=== PATIENT | female | born 1970 | race Caucasian/White ===

== ENCOUNTER 2018-05-25 15:40 | Emergency (ER) | payer BC, OTHER ==
[~2018-05-25] VITALS: Ht 154.9 cm; Wt 81.6 kg
[~2018-05-25 15:40] MED LIST: ACHD5005 PO; OMEP20TA7 PO; omeprazole PO
--- OUTSIDE RECORDS SUMMARY | 2018-05-25 15:44 | XMS REPORT | Continuity of Care Document ---
Author Author Counts Include [facility] Address Unknown Phone Unavailable Allergies Active Description Code Type Severity Reaction Onset Reported/Identified Relationship to Patient Clinical Status Yes shellfish shellfish Unknown N/A 04/12/2016 Medications There is no data. Problems Date Dx Coded Attending Type Code Diagnosis Diagnosed By 07/16/2013 SHANNON TELLEZ DO 486 PNEUMONIA ORGANISM UNSPECIFIED 07/16/2013 SHANNON TELLEZ DO 786.30 HEMOPTYSIS UNSPECIFIED 03/31/2016 JANE SORTO LMSW Ot R10.11 RIGHT UPPER QUADRANT PAIN 03/31/2016 JANE SORTO LMSW Ot R10.11 RIGHT UPPER QUADRANT PAIN 04/12/2016 JANE SORTO LMSW Ot R10.11 RIGHT UPPER QUADRANT PAIN 04/12/2016 SANDRA CAMERON, SERGEY Snider Ot K25.9 GASTRIC ULCER, UNSP ACUTE OR CHRONIC, 04/12/2016 SERGEY FLORES MD Ot R10.13 EPIGASTRIC PAIN 04/13/2016 SERGEY FLORES MD Ot K25.9 GASTRIC ULCER, UNSP ACUTE OR CHRONIC, 04/13/2016 SERGEY FLORES MD Ot R10.13 EPIGASTRIC PAIN 04/16/2016 SERGEY FLORES MD Ot K82.8 OTHER SPECIFIED DISEASES OF GALLBLADDER 04/16/2016 SERGEY FLORES MD Ot Z01.818 ENCOUNTER FOR OTHER PREPROCEDURAL EXAMIN 04/18/2016 SERGEY FLORES MD Ot K25.9 GASTRIC ULCER, UNSP ACUTE OR CHRONIC, 04/18/2016 SERGEY FLORES MD Ot R10.13 EPIGASTRIC PAIN 04/19/2016 SERGEY FLORES MD Ot K82.8 OTHER SPECIFIED DISEASES OF GALLBLADDER 04/19/2016 SERGEY FLORES MD Ot Z01.818 ENCOUNTER FOR OTHER PREPROCEDURAL EXAMIN 04/19/2016 SERGEY FLORES MD Ot K81.1 CHRONIC CHOLECYSTITIS 04/19/2016 SERGEY FLORES MD Ot K82.1 HYDROPS OF GALLBLADDER 04/19/2016 SERGEY FLORES MD Ot Z11.2 ENCOUNTER FOR SCREENING FOR OTHER BACTER 04/19/2016 SERGEY FLORES MD Ot K82.8 OTHER SPECIFIED DISEASES OF GALLBLADDER 04/19/2016 SERGEY FLORES MD Ot R53.83 OTHER FATIGUE 04/20/2016 SERGEY FLORES MD Ot K81.1 CHRONIC CHOLECYSTITIS 04/20/2016 SERGEY FLORES MD Ot K82.1 HYDROPS OF GALLBLADDER 04/20/2016 SERGEY FLORES MD Ot Z11.2 ENCOUNTER FOR SCREENING FOR OTHER BACTER 04/22/2016 SEREGY FLORES MD Ot K82.8 OTHER SPECIFIED DISEASES OF GALLBLADDER 04/22/2016 SERGEY FLORES MD Ot Z01.818 ENCOUNTER FOR OTHER PREPROCEDURAL EXAMIN 04/25/2016 SERGEY FLORES MD Ot K81.1 CHRONIC CHOLECYSTITIS 04/25/2016 SERGEY FLORES MD Ot K82.1 HYDROPS OF GALLBLADDER 04/25/2016 SERGEY FLORES MD Ot Z11.2 ENCOUNTER FOR SCREENING FOR OTHER BACTER 04/29/2016 SERGEY FLORES MD Ot K82.8 OTHER SPECIFIED DISEASES OF GALLBLADDER 04/29/2016 SERGEY FLORES MD Ot R53.83 OTHER FATIGUE 05/25/2018 JANE SORTO LMSW Ot R10.11 RIGHT UPPER QUADRANT PAIN 05/25/2018 SERGEY FLORES MD Ot R10.13 EPIGASTRIC PAIN 05/25/2018 SERGEY FLORES MD Ot Z01.818 ENCOUNTER FOR OTHER PREPROCEDURAL EXAMIN 05/25/2018 SERGEY FLORES MD Ot K82.8 OTHER SPECIFIED DISEASES OF GALLBLADDER 05/25/2018 SERGEY FLORES MD Ot R53.83 OTHER FATIGUE Procedures Code Description [place] [address] XRAY CHEST 2 VIEW 07/16/2013 Results Test Result Range Automated blood complete blood count (hemogram) panel - 04/16/16 14:40 Blood leukocytes automated count (number/volume) 6.7 10*3/uL 4.3-11.0 Blood erythrocytes automated count (number/volume) 4.97 10*6/uL 4.35-5.85 Venous blood hemoglobin measurement (mass/volume) 14.2 g/dL 11.5-16.0 Blood hematocrit (volume fraction) 44 % 35-52 Automated erythrocyte mean corpuscular volume 88 [foz_us] 80-99 Automated erythrocyte mean corpuscular hemoglobin (mass per erythrocyte) 29 pg 25-34 Automated erythrocyte mean corpuscular hemoglobin concentration measurement ( mass/volume) 33 g/dL 32-36 Automated erythrocyte distribution width ratio 13.8 % 10.0-14.5 Automated blood platelet count (count/volume) 257 10*3/uL 130-400 Automated blood platelet mean volume measurement 9.1 [foz_us] 7.4-10.4 Comprehensive metabolic panel - 04/16/16 14:40 Serum or plasma sodium measurement (moles/volume) 140 mmol/L 135-145 Serum or plasma potassium measurement (moles/volume) 4.0 mmol/L 3.6-5.0 Serum or plasma chloride measurement (moles/volume) 108 mmol/L 98-107 Carbon dioxide 22 mmol/L 21-32 Serum or plasma anion gap determination (moles/volume) 10 mmol/L 5-14 Serum or plasma urea nitrogen measurement (mass/volume) 17 mg/dL 7-18 Serum or plasma creatinine measurement (mass/volume) 0.68 mg/dL 0.60-1.30 Serum or plasma urea nitrogen/creatinine mass ratio 25 NRG Serum or plasma creatinine measurement with calculation of estimated glomerular filtration rate > NRG Serum or plasma glucose measurement (mass/volume) 76 mg/dL 70-105 Serum or plasma calcium measurement (mass/volume) 9.5 mg/dL 8.5-10.1 Serum or plasma total bilirubin measurement (mass/volume) 0.4 mg/dL 0.1-1.0 Serum or plasma alkaline phosphatase measurement (enzymatic activity/volume) 55 U/L 40-136 Serum or plasma aspartate aminotransferase measurement (enzymatic activity/ volume) 11 U/L 5-34 Serum or plasma alanine aminotransferase measurement (enzymatic activity/volume ) 9 U/L 0-55 Serum or plasma protein measurement (mass/volume) 6.9 g/dL 6.4-8.2 Serum or plasma albumin measurement (mass/volume) 4.1 g/dL 3.2-4.5 Methicillin resistant Staphylococcus aureus (MRSA) screening culture - 06:32 Methicillin resistant Staphylococcus aureus (MRSA) screening culture NEG NRG Encounters ACCT No. Visit Date/Time Discharge Status Pt. Type Provider Facility Loc./Unit Complaint [id number] 07/16/2013 11:54:00 07/16/2013 23:59:59 CLS Outpatient SHANNON TELLEZ DO [id number] 04/19/2016 06:07:00 04/19/2016 12:00:00 DIS Outpatient SERGEY FLORES MD [facility] SDC DYSKNESIA [id number] 04/16/2016 08:15:00 04/16/2016 23:59:59 CLS Outpatient SERGEY FLORES MD [facility] CARD RUQ PAIN,NEG SONO, ABD PAIN,FATIGUE [id number] 04/16/2016 12:31:00 04/16/2016 13:31:00 DIS Outpatient SERGEY FLORES MD [facility] PREOP DYSKNESIA [id number] 04/12/2016 10:52:00 04/12/2016 12:43:00 DIS Outpatient SERGEY FLORES MD [facility] SDC UPPER GASTRIC PAIN [id number] 04/08/2016 05:51:00 04/08/2016 23:59:59 CLS Outpatient SERGEY FLORES MD [facility] PREOP UPPER GASTRIC PAIN [id number] 03/30/2016 09:06:00 03/30/2016 23:59:59 CLS Outpatient JANE SORTO APRN [facility] RAD BILIARY COLIC,RUQ PAIN, NAUSEA [id number] 05/25/2018 15:41:00 ACT Emergency ALMA DELIA PLATA MD [facility] ER HEART FLUTTERING
--- OUTSIDE RECORDS SUMMARY | 2018-05-25 15:44 | XMS REPORT ---
Author RINA Chu Organization [employer] Address Unknown Phone Unavailable Care Team Providers Care Food Checker Name Role Phone RINA CLINE CP Unavailable Allergies, Adverse Reactions, Alerts Substance Reaction Event Type N.K.D.A. Info Not Available Non Drug Allergy Problems Problem Type Condition Code Onset Dates Condition Status Problem Hemoptysis, unspecified 786.30 Active Assessment Pneumonia J18.9 Active Problem Pneumonia, organism unspecified 486 Active Assessment Pharyngitis J02.9 Active Medications Medication Code System Code Instructions Start Date End Date Status Dosage Mucinex DM [facility] [address]-04 not defined Ibuprofen ND 0 200mg TID 3-4 tab Phenylephrine HCl [facility] [address]-32 not defined Claritin [facility] [address]-48 not defined Azithromycin [facility] [address]-69 250 MG Orally Once a day Mar 29, 2015 Apr 03, 2015 2 tablets on the first day, then 1 tablet daily for 4 days Procedures Procedure Coding System Code Date Office Visit, Est Pt., Level 3 CPT-4 89048 Mar 29, 2015 STREP A ASSAY W/OPTIC CPT-4 10736 Mar 29, 2015 Vital Signs Date/Time: Mar 29, 2015 Temperature 98.3 F Weight 198.2 lbs Height 61 in BMI 37.45 Index Blood Pressure Diastolic 84 mmHg Blood Pressure Systolic 120 mmHg Cardiac Monitoring Heart Rate 98 bpm Results Name Result Date Reference Range Unit Abnormality Flag STREP A (IN HOUSE) Summary Purpose [employer] Submission
[2018-05-25] MEDS ORDERED: NS IV 1000 ML 1,000 ML ONE (16:00)
--- NOTE | 2018-05-25 16:00 | ED Cardiac General ---
History of Present Illness General Stated Complaint: HEART FLUTTERING Source: patient Exam Limitations: no limitations History of Present Illness Date Seen by Provider: May 25, 2018 Time Seen by Provider: 15:58 Initial Comments 47-year-old female who was sent over from [facility] urgent care with complaints of feeling like her heart is fluttering and EKG changes. She reports that she's had these symptoms for the past [address] Beatty has been treating her for indigestion and heartburn. She had an appointment today and they did an EKG found that she was having PVCs. She denies chest pain, shortness of breath, lightheadedness, dizziness, nausea or vomiting. Timing/Duration: other (2 months) Modifying Factors: improves with palpation Associated Systoms: No Chest Pain, No Shortness of Air, No Syncope, No Weakness Allergies and Home Medications Allergies Coded Allergies: nitrofurantoin (Verified Allergy, Unknown, 05/25/18) Uncoded Allergies: CLINDAMYACIN (Allergy, Unknown, 05/25/18) shellfish (Allergy, Unknown, 04/12/16) Home Medications Hydrocodone Bit/Acetaminophen 1 Each Tablet, 1-2 TAB PO 4-6HR PRN for PAIN Prescribed by: SERGEY FLORES on 04/19/16 0854 Omeprazole 20 Mg Tablet., 20 MG PO DAILY, (Reported) Patient Home Medication List Home Medication List Reviewed: Yes Review of Systems Review of Systems Constitutional: no symptoms reported, see HPI; No dizziness Cardiovascular: See HPI, Palpitations All Other Systems Reviewed Negative Unless Noted: Yes Past Dqqjtgo-Nxzbad-Yajxyt Hx Past Med/Social Hx: Reviewed Nursing Past Med/Soc Hx Patient Social History Recent Foreign Travel: No Contact w/Someone Who Travel: No Recent Hopitalizations: No Seasonal Allergies Seasonal Allergies: No Past Medical History Section, Hysterectomy Reproductive Disorders: No Sexually Transmitted Disease: No HIV/AIDS: No Gastroesophageal Reflux, Gall Bladder Disease Family Medical History Reviewed Nursing Family Hx Physical Exam Vital Signs Vital Signs - First Documented Capillary Refill : Height, Weight, BMI Height: 5'1.00" Weight: 155lbs. 0.0oz. 70.384706ke; 29.3 BMI Method: General Appearance: No Apparent Distress, WD/WN Respiratory: Chest Non Tender, Lungs Clear, Normal Breath Sounds, No Accessory Muscle Use, No Respiratory Distress Cardiovascular: Regular Rate, Rhythm (PVCs), No Edema, No Gallop, No JVD, No Murmur, Normal Peripheral Pulses Neurologic/Psychiatric: Alert, Oriented x3, Normal Mood/Affect Skin: Normal Color, Warm/Dry Progress/Results/Core Measures Results/Orders Lab Results Laboratory Tests Test 05/25/18 16:10 Range/Units White Blood Count 11.7 H 4.3-11.0 10^3/uL Red Blood Count 4.92 4.35-5.85 10^6/uL Hemoglobin 14.1 11.5-16.0 G/DL Hematocrit 44 35-52 % Mean Corpuscular Volume 89 80-99 FL Mean Corpuscular Hemoglobin 29 25-34 PG Mean Corpuscular Hemoglobin Concent 32 32-36 G/DL Red Cell Distribution Width 14.2 10.0-14.5 % Platelet Count 273 130-400 10^3/uL Mean Platelet Volume 9.0 7.4-10.4 FL Neutrophils (%) (Auto) 74 42-75 % Lymphocytes (%) (Auto) 20 12-44 % Monocytes (%) (Auto) 6 0-12 % Eosinophils (%) (Auto) 1 0-10 % Basophils (%) (Auto) 0 0-10 % Neutrophils # (Auto) 8.6 H 1.8-7.8 X 10^3 Lymphocytes # (Auto) 2.3 1.0-4.0 X 10^3 Monocytes # (Auto) 0.7 0.0-1.0 X 10^3 Eosinophils # (Auto) 0.1 0.0-0.3 10^3/uL Basophils # (Auto) 0.0 0.0-0.1 10^3/uL Prothrombin Time 12.7 12.2-14.7 SEC INR Comment 1.0 0.8-1.4 Activated Partial Thromboplast Time 38 H 24-35 SEC Sodium Level 139 135-145 MMOL/L Potassium Level 3.9 3.6-5.0 MMOL/L Chloride Level 106 98-107 MMOL/L Carbon Dioxide Level 24 21-32 MMOL/L Anion Gap 9 5-14 MMOL/L Blood Urea Nitrogen 11 7-18 MG/DL Creatinine 0.76 0.60-1.30 MG/DL Estimat Glomerular Filtration Rate > 60 BUN/Creatinine Ratio 14 Glucose Level 80 70-105 MG/DL Calcium Level 9.7 8.5-10.1 MG/DL Corrected Calcium 9.5 8.5-10.1 MG/DL Magnesium Level 2.3 1.8-2.4 MG/DL Total Bilirubin 0.6 0.1-1.0 MG/DL Aspartate Amino Transf (AST/SGOT) 17 5-34 U/L Alanine Aminotransferase (ALT/SGPT) 14 0-55 U/L Alkaline Phosphatase 68 40-136 U/L Myoglobin 28.9 10.0-92.0 NG/ML Troponin I < 0.028 <0.028 NG/ML Total Protein 7.5 6.4-8.2 GM/DL Albumin 4.2 3.2-4.5 GM/DL My Orders Orders - RICKIE SANTANA Cbc With Automated Diff (05/25/18 15:57) Magnesium (05/25/18 15:57) Chest 1 View, Ap/Pa Only (05/25/18 15:57) Cardiac Profile 1 (05/25/18 15:57) Comprehensive Metabolic Panel (05/25/18 15:57) Myoglobin Serum (05/25/18 15:57) Protime With Inr (05/25/18 15:57) Partial Thromboplastin Time (05/25/18 15:57) O2 (05/25/18 15:57) Monitor-Rhythm Ecg Trace Only (05/25/18 15:57) Saline Lock/Iv-Start (05/25/18 15:57) Ns Iv 1000 Ml (Sodium Chloride 0.9%) (05/25/18 16:00) Medications Given in ED Vital Signs/I&O 05/25/18 05/25/18 05/25/18 15:50 15:50 17:27 Temp 98.1 Pulse 58 71 Resp 18 16 B/P (MAP) 142/77 (98) 144/78 (100) Pulse Ox 99 96 100 O2 Delivery Nasal Cannula Nasal Cannula O2 Flow Rate 2.00 2.00 Progress Progress Note : Time: 17:08 Progress Note I have seen and evaluated the patient. I've informed her of her laboratory findings and chest x-ray. After the liter of fluid she is not having nearly as many PVCs as she was on arrival to the emergency room. Instructed her to follow- up with and she is agreement with plan of care. Return precautions were given. EKG : EKG Time: 15:56 Rate: 53 Rhythm: PVC (tracheomegaly) Intervals: Normal ECG Comparisson: No Previous ECG Available Comment Reviewed by Dr. Rebolledo, he agrees with above Departure Impression Primary Impression: Palpitations Additional Impression: PVCs (premature ventricular contractions) Disposition: 01 HOME, SELF-CARE Condition: Stable/Unchanged Departure-Patient Inst. Decision time for Depature: 17:09 Referrals: IZABELLA TUCKER DO (PCP) Primary Care Physician Tylor CHILDERS MD Patient Instructions: Palpitations (DC) Add. Discharge Instructions: Resume your home medications as previously prescribed. Follow-up with her primary care provider within 1 week for recheck. Follow-up with Dr. Childers for recheck, call first thing tomorrow morning for an appointment time. Return back to the emergency room for any worsening symptoms or concerns as needed. RICKIE SANTANA May 25, 2018 16:00
[2018-05-25 16:18] LABS: BASOPHILS % (AUTO) 0 % (0-10); EOSINOPHILS # (AUTO) 0.1 10^3/uL (0.0-0.3); EOSINOPHILS % (AUTO) 1 % (0-10); HEMATOCRIT 44 % (35-52); HEMOGLOBIN 14.1 G/DL (11.5-16.0); LYMPHOCYTES # (AUTO) 2.3 X 10^3 (1.0-4.0); LYMPHOCYTES % (AUTO) 20 % (12-44); MEAN CORPUSCULAR HEMOGLOBIN 29 PG (25-34); MEAN CORPUSCULAR HGB CONC 32 G/DL (32-36); MEAN CORPUSCULAR VOLUME 89 FL (80-99); MONOCYTES # (AUTO) 0.7 X 10^3 (0.0-1.0); MONOCYTES % (AUTO) 6 % (0-12); NEUTROPHILS # (AUTO) 8.6 X 10^3 (1.8-7.8); NEUTROPHILS % (AUTO) 74 % (42-75); PLATELET COUNT 273 10^3/uL (130-400); RED BLOOD COUNT 4.92 10^6/uL (4.35-5.85); RED CELL DISTRIBUTION WIDTH 14.2 % (10.0-14.5); WHITE BLOOD COUNT 11.7 10^3/uL (4.3-11.0)
[2018-05-25 16:35] LABS: PROTHROMBIN TIME PATIENT 12.7 SEC (12.2-14.7)
--- NOTE | 2018-05-25 16:42 | Diagnostic Imaging Report ---
INDICATION: Cardiac dysrhythmia. Portable upright PA view of the chest is obtained. COMPARISON: No previous study is available for comparison at this time. FINDINGS: Heart size and pulmonary vasculature are within normal limits, and the lungs are clear, bilaterally. IMPRESSION: Unremarkable chest. Dictated by: Dictated on workstation # [id number]
[2018-05-25 16:43] LABS: ALANINE AMINOTRANSFERASE 14 U/L (0-55); ALBUMIN 4.2 GM/DL (3.2-4.5); ALKALINE PHOSPHATASE 68 U/L (40-136); BILIRUBIN,TOTAL 0.6 MG/DL (0.1-1.0); BUN/CREATININE RATIO 14; CALCIUM 9.7 MG/DL (8.5-10.1); CARBON DIOXIDE 24 MMOL/L (21-32); CHLORIDE 106 MMOL/L (98-107); CREATININE SERUM 0.76 MG/DL (0.60-1.30); GFR ESTIMATED > 60; GLUCOSE 80 MG/DL (70-105); MAGNESIUM 2.3 MG/DL (1.8-2.4); POTASSIUM 3.9 MMOL/L (3.6-5.0); SODIUM 139 MMOL/L (135-145); TOTAL PROTEIN 7.5 GM/DL (6.4-8.2)
[2018-05-25 16:50] LABS: MYOGLOBIN SERUM 28.9 NG/ML (10.0-92.0)
[2018-05-25 17:27] VITALS: BP 144/78
== END 2018-05-25 17:26 | disposition home or self-care (01) ==
LOC: EDUNIT# 15:40 → ER 15:41
DX: I49.3 Ventricular premature depolarization (principal); K21.9 Gastro-esophageal reflux disease without esophagitis; Z88.0 Allergy status to penicillin; Z88.8 Allergy status to other drugs, medicaments and biological substances; Z98.890 Other specified postprocedural states; Z90.710 Acquired absence of both cervix and uterus; Z87.19 Personal history of other diseases of the digestive system
CPT/HCPCS: 36415; 71045; 80053; 83735; 83874; 84484; 85025; 85610; 85730; 93005; 93041

== ENCOUNTER 2018-06-28 13:30 | Outpatient (RCR) | payer BC | END 2018-09-26 | disposition home or self-care (01) | LOC: CARD 13:30 | PROVIDERS: ATTEND Internal Medicine Interventional Cardiology | DX: R42 Dizziness and giddiness (principal); I49.3 Ventricular premature depolarization; R00.2 Palpitations; E66.9 Obesity, unspecified; Z68.29 Body mass index [BMI] 29.0-29.9, adult | CPT/HCPCS: 93270 ==

== ENCOUNTER → 2018-09-13 | Outpatient (CLI) | payer BC | LOC: CARD 11:19 | PROVIDERS: ATTEND Internal Medicine Interventional Cardiology | DX: R42 Dizziness and giddiness (principal); I49.3 Ventricular premature depolarization; R00.2 Palpitations; I49.1 Atrial premature depolarization | CPT/HCPCS: 93225; 93226 ==

== ENCOUNTER → 2019-02-02 | Outpatient (CLI) | payer BC ==
--- NOTE | 2019-02-02 18:30 | Diagnostic Imaging Report ---
INDICATION: Routine screening. COMPARISON: No prior mammograms are available for comparison. This is a baseline study. EXAMINATION: 2D and 3D bilateral screening mammography was performed with CAD. 3D tomographic images were obtained and reviewed. The current study was also evaluated with a Computer Aided Detection (CAD) system. FINDINGS: Scattered fibroglandular densities are identified, bilaterally. There are benign calcifications, bilaterally. A tiny circumscribed nodule in the upper-outer left breast is noted which has benign features. No spiculated mass or malignant appearing microcalcifications are seen. The axillae are unremarkable. IMPRESSION: No mammographic features suspicious for malignancy are identified. ACR BI-RADS Category 1: Negative. Result letter will be mailed to the patient. Note: At least 10% of breast cancer is not imaged by mammography. Dictated on workstation # [id number]
== END ==
LOC: RAD 14:59
PROVIDERS: ATTEND Nurse Practitioner Family
DX: Z12.31 Encounter for screening mammogram for malignant neoplasm of breast (principal)
CPT/HCPCS: 77067

== ENCOUNTER → 2020-09-18 | Outpatient (CLI) | payer BC ==
--- NOTE | 2020-09-19 17:28 | Diagnostic Imaging Report ---
INDICATION: Routine screening. Comparison is made with prior mammogram 02/02/2019. 2-D and 3-D bilateral screening mammography was performed with CAD. Scattered fibroglandular densities are identified bilaterally. Benign nodular outer left breast is stable. No spiculated mass or malignant appearing microcalcifications are seen. Axillae are unremarkable. IMPRESSION: BI-RADS Category 2 No mammographic features suspicious for malignancy are identified. ACR BI-RADS Category 2: Benign findings. Result letter will be mailed to the patient. Note: At least 10% of breast cancer is not imaged by mammography. Dictated by: Dictated on workstation # [id number]
== END ==
LOC: RAD 15:45
PROVIDERS: ATTEND Nurse Practitioner Family
DX: Z12.31 Encounter for screening mammogram for malignant neoplasm of breast (principal); Z00.01 Encounter for general adult medical examination with abnormal findings; Z12.11 Encounter for screening for malignant neoplasm of colon; B35.3 Tinea pedis; B35.4 Tinea corporis; E66.8 Other obesity; M75.52 Bursitis of left shoulder; R00.2 Palpitations; Z79.899 Other long term (current) drug therapy
CPT/HCPCS: 77063; 77067

== ENCOUNTER 2020-10-30 07:45 | Outpatient (RCR) | payer BC ==
[~2020-10-30] VITALS: Ht 154.9 cm; Wt 89.9 kg
[~2020-10-30 07:45] MED LIST changes: +BUPR100T8 PO; +CLOT15CR6 TP; +LORA10CA PO; +METO50TA7 PO; +PSEU-137 PO; +TERB250T16 PO
== END 2020-10-30 08:10 | disposition home or self-care (01) ==
LOC: PREOP 07:45
PROVIDERS: ATTEND Surgery
DX: Z01.812 Encounter for preprocedural laboratory examination (principal); Z12.11 Encounter for screening for malignant neoplasm of colon; K21.9 Gastro-esophageal reflux disease without esophagitis; Z20.822 Contact with and (suspected) exposure to COVID-19
CPT/HCPCS: 87635

== ENCOUNTER 2020-11-04 08:52 | Day surgery (SDC) | payer BC ==
[~2020-11-04] VITALS: Ht 154.9 cm; Wt 89.9 kg
[2020-11-04] MEDS ORDERED: LACTATED RINGERS 1,000 ML IV ONE (09:01)
[2020-11-04] MEDS ORDERED: LACTATED RINGERS 1,000 ML IV STA (09:04)
[2020-11-04 09:10] VITALS: BP 133/87
[2020-11-04] MEDS ORDERED: HURRICAINE EXT TUBE (BENZOCAINE) XX PRN (09:15)
[2020-11-04] MEDS ORDERED: MTP25TSR PO (09:22)
[2020-11-04] MEDS ORDERED: MIDAZOLAM 2 MG/2 ML (VERSED) VIAL ONE (10:52)
[2020-11-04] MEDS ORDERED: proPOfol 200 MG/20 ML (DIPRIVAN) VIAL IV ONE ×2 (10:52→11:16)
--- NOTE | 2020-11-04 11:27 | Progress Note-Post Operative ---
Post-Operative Progess Note Surgeon (s)/Payment Processor (s) Surgeon KIRK MA DO Payment Processor: na Pre-Operative Diagnosis gerd, screening colonoscopy Post-Operative Diagnosis small hiatal hernia, early schotski's ring, normal colon Procedure & Operative Findings Date of Procedure 11/04/20 Procedure Performed/Findings egd c biopsies, colonoscopy Anesthesia Type per [facility] Estimated Blood Loss Estimated blood loss (mL): none Specimens/Packing Specimens Removed antrum, ge KIRK MA DO Nov 04, 2020 11:27
--- NOTE | 2020-11-04 11:28 | Discharge Inst-Simple/Standard ---
Discharge Inst-Standard Patient Instructions/Follow Up Plan of Care/Instructions/FU: 2-3 Weeks Evelin Activity as Tolerated: Yes Discharge Diet: Regular Diet KIRK MA DO Nov 04, 2020 11:28
[2020-11-04 11:30] VITALS: BP 142/60
[2020-11-04 11:35] VITALS: BP 116/69
[2020-11-04 11:55] VITALS: BP 133/64
--- NOTE | 2020-11-04 12:36 | Anesthesia-General Post-Op ---
MAC Patient Condition Mental Status/LOC: Same as Preop Cardiovascular: Satisfactory Nausea/Vomiting: Absent Respiratory: Satisfactory Pain: Controlled Complications: Absent Post Op Complications Complications None Follow Up Care/Instructions Patient Instructions None needed. Anesthesiology Discharge Order Discharge Order Patient was seen after the procedure and she was doing well, no complaints, stable vital signs, no apparent adverse anesthesia problems. TAMIKO MILLER DO Nov 04, 2020 12:36
--- NOTE | 2020-11-04 16:22 | OPERATIVE REPORT ---
DATE OF SERVICE: 11/04/2020 PREOPERATIVE DIAGNOSES: Screening colonoscopy, gastroesophageal reflux disease. POSTOPERATIVE DIAGNOSES: Small hiatal hernia, early Schatzki's ring, normal colon. PROCEDURE: EGD with biopsies, colonoscopy. SURGEON: Kirk Waters DO ANESTHESIA: Per MDA. ESTIMATED BLOOD LOSS: None. COMPLICATIONS: None. INDICATIONS: The patient is a 50-year-old female needing screening colonoscopy and also has GERD symptoms. She understands risks and benefits of procedure and wished to proceed with procedure. Consent was signed in the chart. DESCRIPTION OF PROCEDURE: The patient was taken to the endoscopy suite, placed in left lateral recumbent position. Timeout was performed. Scope was inserted in mouth, down the esophagus, stomach and into the duodenum without difficulty. There were no polyps, masses or ulcerations within the duodenum. Scope was then slowly retracted back to stomach where it was further insufflated. Biopsy of the antrum was obtained. No polyps, masses or ulcerations. Scope was retroflexed noting a small hiatal hernia, no other pathology. Scope was returned to its normal position, slowly withdrawn to distal esophagus. Early Schatzki's ring present. Two biopsies of this area were made at the GE junction at early Schatzki's ring. The scope was then slowly retracted back noting no other pathology. The patient tolerated procedure well. Digital rectal exam was performed noting internal hemorrhoids. No palpable polyps, masses or ulcerations. Scope was inserted in the rectum, advanced all the way to cecum with minimal difficulty. Prep was adequate. Scope was slowly retracted back. There were no polyps, masses or ulcerations in the cecum, ascending, transverse, descending and sigmoid colon. Once in the rectum, scope was retroflexed noting no other pathology. Scope was returned to its normal position, slowly withdrawn until completely removed. The patient tolerated procedure well without any complications. She was taken to recovery room in stable condition. RECOMMENDATIONS: The patient will need repeat colonoscopy in 10 years unless family history of colon cancer, which would then be 5 years. Any issues before that be seen at that time. The patient will follow up on biopsies for EGD. We will continue with current regimen. Job ID: [id number] DocumentID: [id number] Dictated Date: 11/04/2020 11:31:48 Disaster Recovery Analyst Date: 11/04/2020 16:21:44 Dictated By: KIRK WATERS DO [place]
== END 2020-11-04 12:33 | disposition home or self-care (01) ==
LOC: ENDO 08:52
PROVIDERS: ATTEND Surgery
DX: Z12.11 Encounter for screening for malignant neoplasm of colon (principal); K21.00 Gastro-esophageal reflux disease with esophagitis, without bleeding; K29.50 Unspecified chronic gastritis without bleeding; K44.9 Diaphragmatic hernia without obstruction or gangrene; K22.2 Esophageal obstruction; K64.8 Other hemorrhoids; E66.9 Obesity, unspecified; I49.3 Ventricular premature depolarization; F41.9 Anxiety disorder, unspecified; Z90.710 Acquired absence of both cervix and uterus; Z90.49 Acquired absence of other specified parts of digestive tract; Z79.899 Other long term (current) drug therapy; Z68.37 Body mass index [BMI] 37.0-37.9, adult; Z82.49 Family history of ischemic heart disease and other diseases of the circulatory system
CPT/HCPCS: 88305

== ENCOUNTER → 2021-05-07 | Outpatient (CLI) | payer BC ==
[~2021-05-07] VITALS: Ht 154.9 cm; Wt 88.9 kg
[~2021-05-07] MED LIST changes: +ACETAMINOPHEN 500 MG TAB (TYLENOL) PO PRN; +BAMLANIVIMAB 700 MG/ETESEVIMAB 1,400 MG IN NS IV ONE; +EPINEPHrine INJECTION 1 MG/ML AMP IM PRN; +MTP25TSR PO; +ONDANSETRON 4 MG/2 ML (SDV) Z0FRAN IV PRN; -PSEU-137 PO; +PSEU-182 PO; -TERB250T16 PO; +TERB250T88 PO; +diphenhydrAMINE 50 MG/ML INJ (BENADRYL) IV PRN
[2021-05-07 10:04] VITALS: BP 144/66
[2021-05-07 11:03] VITALS: BP 133/68
== END ==
LOC: INFUSION 09:47
PROVIDERS: ATTEND Nurse Practitioner Family
DX: U07.1 COVID-19 (principal)

== ENCOUNTER → 2021-06-23 | Outpatient (CLI) | payer BC ==
[~2021-06-23] MED LIST changes: -ACETAMINOPHEN 500 MG TAB (TYLENOL) PO PRN; -BAMLANIVIMAB 700 MG/ETESEVIMAB 1,400 MG IN NS IV ONE; -EPINEPHrine INJECTION 1 MG/ML AMP IM PRN; -ONDANSETRON 4 MG/2 ML (SDV) Z0FRAN IV PRN; -diphenhydrAMINE 50 MG/ML INJ (BENADRYL) IV PRN
[2021-06-23 14:14] LABS: HEMATOCRIT 42 % (35-52); HEMOGLOBIN 13.4 g/dL (11.5-16.0); MEAN CORPUSCULAR HEMOGLOBIN 29 pg (25-34); MEAN CORPUSCULAR HGB CONC 32 g/dL (32-36); MEAN CORPUSCULAR VOLUME 89 fL (80-99); MEAN PLATELET VOLUME 8.8 fL (9.0-12.2); PLATELET COUNT 280 10^3/uL (130-400); WHITE BLOOD COUNT 6.7 10^3/uL (4.3-11.0)
[2021-06-23 14:37] LABS: ALANINE AMINOTRANSFERASE 24 U/L (0-55); ALBUMIN 4.2 GM/DL (3.2-4.5); ALKALINE PHOSPHATASE 76 U/L (40-136); BILIRUBIN,TOTAL 0.3 MG/DL (0.1-1.0); BUN/CREATININE RATIO 18; CALCIUM 10.1 MG/DL (8.5-10.1); CARBON DIOXIDE 22 MMOL/L (21-32); CHLORIDE 106 MMOL/L (98-107); CREATININE SERUM 0.77 MG/DL (0.60-1.30); GFR ESTIMATED 94; GLUCOSE 90 MG/DL (70-105); POTASSIUM 4.5 MMOL/L (3.6-5.0); SODIUM 140 MMOL/L (135-145); TOTAL PROTEIN 7.6 GM/DL (6.4-8.2)
== END ==
LOC: LAB 13:55
PROVIDERS: ATTEND Nurse Practitioner Family
DX: R07.9 Chest pain, unspecified (principal); R00.2 Palpitations
CPT/HCPCS: 36415; 80053; 82553; 83874; 84484; 85027; 85379

== ENCOUNTER → 2021-08-11 | Outpatient (CLI) | payer BC ==
[~2021-08-11] MED LIST changes: +CATHETER FLUSH 10 ML SYR IVP PRN; +REGADENOSON 0.4 MG/5 ML SYR (LEXISCAN) IV ONE
[2021-08-11 09:12] VITALS: BP 134/64
--- NOTE | 2021-08-13 09:51 | STRESS TEST ---
DATE OF SERVICE: 08/11/2021 RESTING AND POST REGADENOSON TECHNETIUM-99M TETROFOSMIN SPECT CT IMAGING ORDERING PHYSICIAN: Dr. Bishop. PRIMARY PHYSICIAN: . CLINICAL DIAGNOSIS: Coronary artery disease. Baseline images were carried out after injection of 10.29 mCi of technetium-99m Tetrofosmin. This was followed by 0.4 mg regadenoson and 31 mCi of technetium-99m Tetrofosmin for stress imaging. The electrocardiogram showed sinus rhythm at baseline and it did not change significantly with the regadenoson infusion. The patient tolerated the procedure well. Review of images at rest and following stress does not indicate any distinct perfusion defects consistent with significant myocardial ischemia or infarction. Gated images show normal global left ventricular systolic function with normal regional wall motion. Left ventricular ejection fraction is calculated to be 71%. CONCLUSIONS: 1. No evidence of any significant myocardial ischemia or infarction on the study. 2. Normal regional wall motion. 3. Normal global left ventricular systolic function with a calculated ejection fraction of 71%. Job ID: [id number] DocumentID: [id number] Dictated Date: 08/13/2021 09:11:51 Fingernail Sculpturer Date: 08/13/2021 09:50:39 Dictated By: PETER BISHOP MD, MA, FACP, FACC,
== END ==
LOC: CARD 08:15
PROVIDERS: ATTEND Internal Medicine Cardiovascular Disease
DX: I25.10 Atherosclerotic heart disease of native coronary artery without angina pectoris (principal)
CPT/HCPCS: 78452; 93017; 93225; 93226; A9502

== ENCOUNTER → 2022-06-08 | Outpatient (CLI) | payer BC ==
[~2022-06-08] MED LIST changes: +BUPR-104 PO; -BUPR100T8 PO; -CATHETER FLUSH 10 ML SYR IVP PRN; +OMEP20TA56 PO; -OMEP20TA7 PO; -REGADENOSON 0.4 MG/5 ML SYR (LEXISCAN) IV ONE
--- NOTE | 2022-06-08 15:24 | Diagnostic Imaging Report ---
INDICATION: Routine screening. COMPARISON: 09/18/2020 and 02/02/2019. TECHNIQUE: 2D and 3D bilateral screening mammography was performed with CAD. FINDINGS: Scattered fibroglandular densities are identified bilaterally. A benign nodule in the outer left breast is stable. No spiculated mass or malignant-appearing microcalcifications are identified. The axillae are unremarkable. IMPRESSION: No mammographic features suspicious for malignancy are identified. ACR BI-RADS Category 2: Benign findings. Result letter will be mailed to the patient. Note: At least 10% of breast cancer is not imaged by mammography. Dictated by: Dictated on workstation # [id number]
== END ==
LOC: RAD 13:45
DX: Z12.31 Encounter for screening mammogram for malignant neoplasm of breast (principal); N95.1 Menopausal and female climacteric states; R53.83 Other fatigue; K44.9 Diaphragmatic hernia without obstruction or gangrene; R30.0 Dysuria; E11.9 Type 2 diabetes mellitus without complications; E66.8 Other obesity; Z91.199 Patient's noncompliance with other medical treatment and regimen due to unspecified reason; Z71.3 Dietary counseling and surveillance
CPT/HCPCS: 77063; 77067